=== PATIENT | male | born 1995 | race Two or more races ===

== ENCOUNTER 2019-11-08 09:40 | Emergency (ER) | payer MEDICAID ==
[2019-11-08] MEDS ORDERED: Acetaminophen 500 MG Tab PO ONE (10:01)
[2019-11-08] MEDS ORDERED: Ibuprofen 800 MG Tab PO ONE (10:01)
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
== END 2019-11-08 11:35 | disposition home or self-care (01) ==
LOC: FB.ED 09:40
DX: S09.93XA Unspecified injury of face, initial encounter (principal); Y04.0XXA Assault by unarmed brawl or fight, initial encounter
CPT/HCPCS: 70450; 70486; 99284; A9270

== ENCOUNTER 2021-01-18 17:52 | Emergency (ER) | payer MEDICAID ==
[2021-01-18] MEDS: LORazepam 2 MG/ML SDV IM STA (18:35)
[2021-01-18] MEDS: Lidocaine/EPINEPHrine/Tetracaine Soln 5 ML Each TOP STA (18:37)
[2021-01-18] MEDS: LORazepam 2 MG/ML SDV ONE (18:41)
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
== END 2021-01-18 18:50 | disposition left against medical advice (07) ==
LOC: FB.ED 17:52
DX: S61.211A Laceration without foreign body of left index finger without damage to nail, initial encounter (principal); F41.9 Anxiety disorder, unspecified; W25.XXXA Contact with sharp glass, initial encounter
CPT/HCPCS: 96372; 99283; A9270; J2060

== ENCOUNTER 2022-06-19 14:17 | Emergency (ER) | payer SELFPAY ==
[2022-06-19] MEDS ORDERED: fentaNYL 100 MCG/2 ML SDV IV ONE (14:18)
[2022-06-19] MEDS ORDERED: Lactated Ringers 1,000 ML IV ONE (14:18)
[2022-06-19] MEDS ORDERED: Propofol 200 MG/20 ML SDV IV ONE (14:18)
== END 2022-06-19 16:40 | disposition home or self-care (01) ==
LOC: FB.ED 14:17
DX: S43.005A Unspecified dislocation of left shoulder joint, initial encounter (principal); Z91.013 Allergy to seafood; X50.1XXA Overexertion from prolonged static or awkward postures, initial encounter
CPT/HCPCS: 01730; 23650; 73020; 73030; 99152; 99153; 99283; J2704; J3010; J7120; 99282

== ENCOUNTER 2022-06-22 01:47 | Emergency (ER) | payer SELFPAY ==
[2022-06-22] MEDS ORDERED: Lidocaine 1% 20 ML MDV INFILT ONE (01:48)
[2022-06-22] MEDS ORDERED: Ketorolac 30 MG/ML SDV IM ONE (01:57)
[2022-06-22] MEDS ORDERED: Acetaminophen/HYDROcodone 325-10 MG Tab PO ONE (01:57)
[2022-06-22] MEDS ORDERED: Ondansetron 4 MG Tab.DIS ONE (02:19)
[2022-06-22] MEDS ORDERED: Ondansetron 4 MG Tab.DIS PO ONE (02:19)
[2022-06-22] MEDS ORDERED: LORazepam 1 MG Tab PO ONE (02:22)
[2022-06-22] MEDS ORDERED: Cyclobenzaprine 10 MG Tab PO ONE (02:57)
== END 2022-06-22 03:12 ==
LOC: FB.ED 01:47
DX: S43.005A Unspecified dislocation of left shoulder joint, initial encounter (principal); Z91.013 Allergy to seafood; X50.1XXA Overexertion from prolonged static or awkward postures, initial encounter
CPT/HCPCS: 23650; 96372; 99284; A9270; J1885; Q0162

== ENCOUNTER 2022-09-28 20:16 | Emergency (ER) | payer SELFPAY ==
[2022-09-28] MEDS ORDERED: traMADol 50 MG Tab PO ONE (20:17)
[2022-09-28] MEDS ORDERED: Lidocaine 2% 20 ML MDV INJECT ONE (20:17)
[2022-09-28] MEDS ORDERED: Ketorolac 30 MG/ML SDV IM ONE (22:12)
[2022-09-28] MEDS ORDERED: fentaNYL 100 MCG/2 ML SDV IM ONE (22:35)
[2022-09-29] MEDS ORDERED: fentaNYL 100 MCG/2 ML SDV IVPUSH ONE ×2 (00:37→01:07)
[2022-09-29] MEDS ORDERED: Midazolam 1 MG/ML 2 ML SDV IVPUSH ONE ×2 (00:38→01:09)
== END 2022-09-29 02:08 | disposition home or self-care (01) ==
LOC: FB.ED 20:16
DX: S43.005A Unspecified dislocation of left shoulder joint, initial encounter (principal); Z79.899 Other long term (current) drug therapy; Z91.013 Allergy to seafood; X58.XXXA Exposure to other specified factors, initial encounter
CPT/HCPCS: 23650; 73030-LT; 99283; A9270-GY; J1885; J2250; J3010

== ENCOUNTER 2022-11-27 11:35 | Emergency (ER) | payer SELFPAY ==
[2022-11-27] MEDS ORDERED: Propofol 200 MG/20 ML SDV IV ONE (11:36)
[2022-11-27] MEDS ORDERED: fentaNYL 100 MCG/2 ML SDV IV ONE (11:36)
[2022-11-27] MEDS ORDERED: Midazolam 1 MG/ML 2 ML SDV IV ONE (11:36)
[2022-11-27] MEDS ORDERED: Sodium Chloride 0.9% 10 ML Syringe FLUSH PRN (11:55)
[2022-11-27] MEDS ORDERED: Sodium Chloride 0.9% 1,000 ML IV SCH (12:00)
[2022-11-27] MEDS ORDERED: Lactated Ringers 1,000 ML IV ONE (13:53)
== END 2022-11-27 14:18 | disposition home or self-care (01) ==
LOC: FB.ED 11:35
DX: S43.015A Anterior dislocation of left humerus, initial encounter (principal); Z91.013 Allergy to seafood; Z72.0 Tobacco use; W19.XXXA Unspecified fall, initial encounter
CPT/HCPCS: 01730; 23650; 73030; 99152; 99283; J2250; J2704; J3010; J7120; 23655

== ENCOUNTER 2022-12-12 05:52 | Emergency (ER) | payer SELFPAY ==
[2022-12-12] MEDS ORDERED: Propofol 200 MG/20 ML SDV IV ONE (05:53)
[2022-12-12] MEDS ORDERED: Midazolam 1 MG/ML 2 ML SDV IV ONE (05:53)
[2022-12-12] MEDS ORDERED: fentaNYL 100 MCG/2 ML SDV IVPUSH ONE (06:39)
[2022-12-12] MEDS ORDERED: Ketorolac 30 MG/ML SDV IVPUSH ONE (07:14)
== END 2022-12-12 09:15 | disposition home or self-care (01) ==
LOC: FB.ED 05:52
DX: M24.411 Recurrent dislocation, right shoulder (principal); F17.210 Nicotine dependence, cigarettes, uncomplicated; Z91.013 Allergy to seafood
CPT/HCPCS: 01730; 73030; 96374; 96375; 99283; J1885; J2250; J2704; J3010; 23655; 99284

== ENCOUNTER 2022-12-25 17:04 | Emergency (ER) | payer SELFPAY ==
[2022-12-25 19:06] LABS: CORONAVIRUS COVID-19 NAA NEGATIVE (NEGATIVE); STREP A BY PCR NOT DETECTED (NOT DETECT)
== END 2022-12-25 19:24 | disposition home or self-care (01) ==
LOC: FB.ED 17:04
DX: J06.9 Acute upper respiratory infection, unspecified (principal); F17.200 Nicotine dependence, unspecified, uncomplicated; Z91.013 Allergy to seafood
CPT/HCPCS: 87651-QW; 99282; 99283; U0002

== ENCOUNTER 2023-04-12 20:59 | Emergency (ER) | payer SELFPAY ==
[2023-04-12] MEDS ORDERED: Midazolam 1 MG/ML 2 ML SDV IV ONE (21:00)
[2023-04-12] MEDS ORDERED: Lactated Ringers 1,000 ML IV ONE (21:00)
[2023-04-12] MEDS ORDERED: fentaNYL 100 MCG/2 ML SDV IV ONE (21:00)
[2023-04-12] MEDS ORDERED: Sodium Chloride 0.9% 10 ML Syringe FLUSH PRN (21:09)
[2023-04-12] MEDS ORDERED: fentaNYL 100 MCG/2 ML SDV IVPUSH PRN (21:09)
== END 2023-04-12 23:15 ==
LOC: FB.ED 20:59
DX: M24.412 Recurrent dislocation, left shoulder (principal); Z91.013 Allergy to seafood; Z79.899 Other long term (current) drug therapy
CPT/HCPCS: 01620; 23650; 36415; 73030; 80307; 99284; J2250; J3010; J7120